=== PATIENT | male | born 1970 | race Asian ===

== ENCOUNTER 2016-12-06 10:33 | Emergency (ER) | payer MEDICAID ==
[~2016-12-06] VITALS: Ht 185.4 cm; Wt 84.1 kg
[2016-12-06 10:40] VITALS: BP 137/87
[2016-12-06] MEDS ORDERED: KETOROLAC 30 MG/1 ML ONE (11:12)
[2016-12-06] MEDS ORDERED: KETOROLAC 30 MG/1 ML IM ONE (11:30)
== END 2016-12-06 12:32 | disposition home or self-care (01) ==
LOC: ED 12:23
DX: S16.1XXA Strain of muscle, fascia and tendon at neck level, initial encounter (principal); S29.012A Strain of muscle and tendon of back wall of thorax, initial encounter; S20.219A Contusion of unspecified front wall of thorax, initial encounter; S22.39XA Fracture of one rib, unspecified side, initial encounter for closed fracture; V49.49XA Driver injured in collision with other motor vehicles in traffic accident, initial encounter; Y93.89 Activity, other specified; Y92.89 Other specified places as the place of occurrence of the external cause; Y99.8 Other external cause status; Z88.2 Allergy status to sulfonamides
CPT/HCPCS: 71020; 71120; 72020; 72050; 72072; 93005; 96372; 99284; J1885